=== PATIENT | female | born 1990 | race Caucasian/White ===

== ENCOUNTER 2021-04-01 11:08 | Emergency (ER) | payer SELFPAY ==
[~2021-04-01] VITALS: Ht 157.5 cm; Wt 64.9 kg
--- NOTE | 2021-04-01 12:12 | NUR ---
MSE in proccess by Dr Humphrey.
[2021-04-01] MEDS ORDERED: IV NORMAL SALINE 1000 ML BAG IV ONE (12:30)
[2021-04-01] MEDS ORDERED: DEXAMETHASONE SOD PHOSPHATE 4 MG INJ IV ONE (12:30)
[2021-04-01] MEDS ORDERED: AZITHROMYCIN IV 500 MG in IV DEXTROSE 5% 250 ML IV ONE (12:30)
[2021-04-01] MEDS ORDERED: CEFTRIAXONE 1 G in IV DEXTROSE 5% 50 ML IV ONE (12:30)
[2021-04-01] MEDS ORDERED: METOCLOPRAMIDE HCL 10 MG/2 ML VIAL IV ONE (12:45)
[2021-04-01] MEDS ORDERED: KETOROLAC TROMETHAMINE 15 MG INJ IVP ONE (12:45)
[2021-04-01] MEDS ORDERED: AZITHROMYCIN 500MG/ D5W 250ML IVPB **ER PYXIS ONLY IV ONE (12:46)
[2021-04-01] MEDS ORDERED: DEXAMETHASONE SOD PHOSPHATE 10 MG INJ ONE (12:46)
[2021-04-01] MEDS ORDERED: CEFTRIAXONE /D5W 50ML IVPB **ER PYXIS IV ONE (12:47)
[2021-04-01 12:48] LABS: HEMATOCRIT 39.8 % (31.2-41.9); MEAN CORPUSCULAR HEMOGLOBIN 28.9 uug (24.7-32.8); MEAN CORPUSCULAR VOLUME 87.9 fL (75.5-95.3); PLATELET COUNT (AUTO) 182 K/uL (179-408)
[2021-04-01] MEDS ORDERED: IV NORMAL SALINE 250 ML IV ONE (12:48)
[2021-04-01] MEDS ORDERED: SWABABLE VALVE TRANSFER SET EA MC ONE (12:48)
[2021-04-01] MEDS ORDERED: IOHEXOL 300MG/ML 100 ML INFUS..BTL ONE (12:48)
[2021-04-01 12:51] LABS: CREATININE 0.9 mg/dL (0.6-1.3); POTASSIUM 3.9 mmol/L (3.5-5.1)
[2021-04-01 13:04] LABS: BILIRUBIN,DIRECT 0.1 mg/dL (0.0-0.2); BILIRUBIN,TOTAL 0.4 mg/dL (0.2-1.0); TOTAL PROTEIN, SERUM 7.7 g/dL (6.4-8.2)
[2021-04-01] MEDS ORDERED: KETOROLAC TROMETHAMINE 15 MG INJ ONE (13:09)
[2021-04-01] MEDS ORDERED: METOCLOPRAMIDE HCL 10 MG/2 ML VIAL ONE (13:10)
[2021-04-01 13:29] LABS: FERRITIN 135 ng/mL (8-252); LACTATE DEHYDROGENASE 176 U/L (81-234)
[2021-04-01 13:47] LABS: *BILIRUBIN,URIN NEGATIVE (NEGATIVE); *BLOOD, URINE 2+ (NEGATIVE); *CLARITY,URINE SLIGHTLY CLOUDY (CLEAR); *COLOR,URINE YELLOW (YELLOW); *KETONES,URINE NEGATIVE (NEGATIVE); *UROBILINOGEN,URINE 0.2 E.U./dl (NORMAL); LEUKOCYTE ESTERASE ,URINE NEGATIVE (NEGATIVE); NITRITE, URINE NEGATIVE (NEGATIVE); PH,URINE 8.5 (5.0-8.0); UGLUCOSE NEGATIVE (NEGATIVE)
[2021-04-01 14:30] LABS: RBC,URINE 20-50 /HPF (0-3)
[2021-04-01 14:31] LABS: BACTERIA,URINE FEW /HPF (NONE SEEN); SQUAMOUS EPITHELIAL CELL,UR MODERATE /HPF (NONE SEEN); URINE AMORPHOUS PHOSPHATES MODERATE /HPF
--- NOTE | 2021-04-01 15:30 | NUR ---
Pt able to tolorate Po intake. Lunch tray provided.
[2021-04-01] MEDS ORDERED: AZIT500T2 PO (18:05)
[2021-04-01] MEDS ORDERED: METO-295 PO (18:05)
[2021-04-01] MEDS ORDERED: IBUP-1957 PO (18:05)
--- NOTE | 2021-04-01 19:05 | NUR ---
IV removed. Catheter intact and site benign. Pressure and 4x4 gauze applied to site. No bleeding noted.
--- NOTE | 2021-04-01 19:05 | NUR ---
Patient discharged to home in stable condition. Written and verbal after care instructions given. Patient verbalizes understanding of instructions. Stressed follow up or return to ER for worsening s/s.
[2021-04-01 19:06] VITALS: BP 122/77
== END 2021-04-01 19:06 | disposition home or self-care (01) ==
LOC: ER 11:08
DX: A04.9 Bacterial intestinal infection, unspecified (principal); Z20.822 Contact with and (suspected) exposure to COVID-19; F32.9 Major depressive disorder, single episode, unspecified; R94.31 Abnormal electrocardiogram [ECG] [EKG]
CPT/HCPCS: 36415; 71045; 74177; 80048; 80076; 81001; 82728; 83605; 83615; 83880; 84145; 84484; 84702; 85025; 87040 ×2; 87086; 87426; 93005; 96365; 96367; 96375; 99285; J0456; J0696; J1100; J1885; J2765; Q9967; 70030-TC; A4663; J7030; J7050